=== PATIENT | female | born 1950 | race Caucasian/White ===

== ENCOUNTER 2022-11-18 15:52 | Emergency (ER) | payer MEDICARE, BC ==
[~2022-11-18] VITALS: Ht 182.9 cm; Wt 68.2 kg
[2022-11-18 16:01] VITALS: BP 174/101
[2022-11-18] MEDS ORDERED: ibuprofen tablet 400 MG TABLET PO ONE (19:40)
[2022-11-18] MEDS ORDERED: acetaminophen 325mg tablet PO ONE (19:40)
== END 2022-11-18 21:14 | disposition home or self-care (01) ==
LOC: ER 15:52
DX: S72.091A Other fracture of head and neck of right femur, initial encounter for closed fracture (principal); I10 Essential (primary) hypertension; Z91.040 Latex allergy status; W18.39XA Other fall on same level, initial encounter; Y93.89 Activity, other specified; Y92.89 Other specified places as the place of occurrence of the external cause; Y99.8 Other external cause status
CPT/HCPCS: 73502; 73700; 99284